=== PATIENT | female | born 1940 | race Caucasian/White ===

== ENCOUNTER 2021-09-07 16:32 | Emergency (ER) | payer MEDICARE, OTHER ==
[~2021-09-07] VITALS: Ht 162.6 cm; Wt 45.0 kg
--- NOTE | 2021-09-07 17:41 | PHYS DOC ---
Past History Past Medical History: Arthritis, COPD, Diverticulitis (PATRICE MARLEY MD) Adult General Chief Complaint Chief Complaint: ABDOMINAL PAIN HPI HPI Patient is a 81-year-old female who presents to the emergency department complaining of abdominal pain since she woke up this morning. Patient reports intermittent pains to different parts of her abdomen that come and go. Patient reports almost no pain when lying flat however notices increased pain when she sits up or when she is up walking. Patient reports she does take MiraLAX and has runny poop all the time. Patient states she is concerned that she might have another small bowel obstruction as she had similar symptoms on her small bowel obstruction earlier this month. Patient currently reports a 0 out of 10 pain at this time. Patient reports she had some "twinges of pain while in the waiting room ". Patient states last week she was seen for a COPD exacerbation as she has a history of emphysema. Patient reports she quit smoking 14 years ago. Patient states they started her on a Medrol Dosepak. Patient does report shortness of breath however patient states she is no more short of breath than she is at all times. Patient denies chest pains, productive cough, nausea or constipation. Patient denies burning with urination, increased urinary frequency, or urinary pressure. She denies recent fever or chills. Patient denies other physical complaints or physical concerns. (SUMEET FINNEY APRN) Review of Systems Review of Systems 14 body systems of review of systems have been reviewed. See HPI for pertinent positives and negative responses, otherwise all other systems are negative, nonpertinent or noncontributory. Constitutional: Negative except as outlined in HPI above. Skin: Negative except as outlined in HPI above. Eyes: Negative except as outlined in HPI above. HENT: Negative except as outlined in HPI above. Respiratory: Negative except as outlined in HPI above. Cardiovascular: Negative except as outlined in HPI above. GI: Negative except as outlined in HPI above. : Negative except as outlined in HPI above. Musculoskeletal: Negative except as outlined in HPI above. Integument: Negative except as outlined in HPI above. Neurologic: Negative except as outlined in HPI above. Endocrine: Negative except as outlined in HPI above. Lymphatic: Negative except as outlined in HPI above. Psychiatric: Negative except as outlined in HPI above. (SUMEET FINNEY APRN) Physical Exam Physical Exam Constitutional: Well developed, well nourished, no acute distress, non-toxic a ppearance. 81-year-old female in mild respiratory distress. HENT: Normocephalic, atraumatic. Eyes: Conjunctiva normal, no discharge. Neck: Normal range of motion, no stridor. Cardiovascular: No cyanosis appreciated, distal cap refill less than 2 seconds. Regular rate and rhythm. Lungs & Thorax: Patient is in no respiratory distress, no audible adventitious lung sounds appreciated. Audible inspiratory expiratory rales. Diminished lung sounds in bases with bronchial vesicular lung sounds inspiratory and expiratory all lung rich. Abdomen: No skin discoloration or swelling of the abdomen visually, normal bowel sounds all 4 quadrants for auscultation, pain to palpation generalized all 4 quadrants, no specific McBurney's point tenderness, rebound tenderness, psoas sign, or Gonzalez sign. Skin: Warm, dry, no erythema, no rash. Back: No tenderness, no deformities. Extremities: No tenderness, no cyanosis, no clubbing, ROM intact, no edema. Neurologic: Alert and oriented X 3, normal motor function, normal sensory function, no focal deficits noted. Psychologic: Affect normal, judgement normal, mood normal. (SUMEET FINNEY APRN) EKG EKG EKG performed at 1725 by ED nursing staff shows a normal sinus rhythm with left axis deviation otherwise no other ectopy appreciated, heart rate 77 bpm, UT interval 0.156, QTc interval 0.420, no acute STEMI, no ACS, no acute ischemia appreciated, EKG interpreted by ED attending physician Dr. Trevino. (SUMEET FINNEY APRN) Radiology/Procedures Radiology/Procedures [] (SUMEET FINNEY APRN) Radiology/Procedures [address] [address] IMAGING REPORT Signed PATIENT: AROLDO SERRANO ACCOUNT: [id number] : 1940 LOCATION: ER AGE: 81 SEX: F EXAM STATUS: REG ER ORD. PHYSICIAN: SUMEET FINNEY APRN REASON: Shortness of breath hypoxia, right upper quadrant abdominal pain PROCEDURE: CT ANGIO CHEST W ABD PEL W/ Study: CT angiography of the chest, abdomen and pelvis Indication: Shortness of breath. Hypoxia. Right upper quadrant abdominal pain. Dissection. Comparison: CT abdomen/pelvis 06/13/2021; CT chest 10/22/2016 Technique: Helical CT imaging performed of the chest, abdomen and pelvis after t he intravenous administration of 75 cc Omnipaque 350 contrast. Sagittal and coronal 3D MIP reconstructions were obtained. One or more of the following individualized dose reduction techniques were utilized for this examination: 1. Automated exposure control 2. Adjustment of the mA and/or kV according to patient size 3. Use of iterative reconstruction technique. Findings: Vasculature: No main, lobar or segmental pulmonary embolism. Nondilated main pulmonary artery. Trivessel calcific coronary artery disease. Extensive calcified and noncalcified atheromatous plaque throughout the aorta and aortic branch vessels. 50 percent stenosis at the left common carotid origin. Estimated 40 percent stenosis along the brachiocephalic artery. Stenosis at the right carotid bulb/bifurcation but not fully characterized. No evidence for a hemodynamically significant stenosis at the left carotid bifurcation. Incompletely characterized stenosis at the left vertebral artery origin. No dissection or aneurysm of the thoracic aorta. Mild ulcerative plaque along portions of the descending aorta such as to the right on image 111 series 4. Severe stenosis at the celiac origin estimated moderate stenosis of approximately 50 percent at the SMA origin. Severe stenosis at the right renal artery origin. No definitive flow-limiting stenosis at the left renal artery origin. Nonvisualized ZHAO origin but ZHAO branches opacify distally. Severe calcified and noncalcified atheromatous plaque of the abdominal aorta with luminal stenosis at several locations mainly up to 50 percent such as approaching the bifurcation. Bilateral calcific plaque of the common iliac arteries with long segment severe stenoses. Less pronounced stenoses of both external iliac and common femoral arteries. Maintained contrast opacification of the partially imaged superficial femoral artery on the right and left. Dense calcific plaque along the bilateral internal iliac arteries. Non-vascular Findings: Chest: Severe emphysema. No newly seen or enlarging pulmonary nodule. No pleural effusion. Scattered bronchial wall thickening. Mediastinal or hilar lymphadenopathy by size criteria. No pericardial effusion. Cachectic body habitus. No axillary adenopathy. Osteopenia. Multifocal degenerative changes. Abdomen/pelvis: No discrete hepatic parenchymal abnormality. Unremarkable gallbladder. Similar mild dilatation of the common duct from the comparison. Unchanged pancreas. The spleen is within normal limits for size. Hypertrophic configuration of the adrenal glands. The morphology is unchanged from the prior and there is no discrete mass. No newly seen abnormality of the left kidney. No left-sided hydronephrosis. Atrophic right kidney with cortical thinning and several small cystic foci. Normal bladder wall thickness. Senescent changes of the uterus with a few calcified fibroids. No definitive adnexal mass. Abnormal appearance of the sigmoid colon in the setting of diverticulosis with edematous wall thickening and poor delineation of the wall at a few locations such as at the left hemipelvis on image 93 series 8. Surrounding edema. There may be a poorly marginated gas/fluid collection at the left hemipelvis such as on image 42 series 9 and 94 series 8. Moderate constipation. Mild scattered small bowel wall thickening. No definitive pneumatosis. No transitioning to collapse to indicate obstruction. No gastric wall emphysema. The appendix is difficult to identify. Pneumoperitoneum scattered throughout the abdomen and pelvis such as seen around the liver. No portal or gastroepiploic venous gas. Osteopenia. Scattered degenerative changes. Unchanged eburnation and sclerosis at the SI joints. Impression: 1. No pulmonary embolism or aortic dissection. 2. Extremely severe calcified and noncalcified atheromatous plaque burden throughout the aorta, aortic branch vessels and coronary arteries. Luminal narrowing of the abdominal aorta up to approximately 50%. Severe stenosis at the celiac, right renal artery and ZHAO origins. Long segment severe stenoses of both common iliac arteries and multifocal less pronounced stenoses at additional locations as described in the body of the report. 3. Scattered free gas throughout the abdomen and pelvis. This appears to be originating from sigmoid colonic perforation which may be secondary to perfora ada diverticulitis with an ischemic etiology not able to be excluded. No portal or gastroepiploic venous gas to help confirm the latter. Portions of the sigmoid colon wall are difficult to delineate and there may be a poorly marginated gas/fluid collection at the left hemipelvis, such as in the region of image 94 series 8. No findings to indicate that perforation arises from the stomach or small bowel. 4. Additional chronic observations to include severe emphysema. Moderate degree of constipation. FOR INTERNAL CODING PURPOSES Critical result: Findings discussed with Dr. Marley on 09/07/2021 at 2155 hours. RESULT CODE: (C) Electronically signed by: JEREMIAS NEGRETE MD (09/07/2021 8:19 PM) [place] [address] IMAGING REPORT Signed PATIENT: AROLDO SERRANO ACCOUNT: [id number] : 1940 LOCATION: ER AGE: 81 SEX: F EXAM STATUS: REG ER ORD. PHYSICIAN: SUMEET FINNEY APRN REASON: Short of breath PROCEDURE: CHEST AP ONLY Study: XR CHEST 1V Indication: Shortness of breath. Comparison: 10/18/2016 Findings: Similar configuration of the cardiomediastinal silhouette and harini. Aortic calcific atherosclerosis. Hyperexpanded lungs with interstitial prominence also present previously. No confluent infiltrate, pleural effusion or pneumothorax. Osteopenia. Impression: 1. No acute radiographic abnormality of the chest. 2. Constellation of findings typically on account of emphysema. Correlate for a smoking history. Electronically signed by: JEREMIAS NEGRETE MD (09/07/2021 6:19 PM) [facility] DICTATED AND SIGNED BY: JEREMIAS NEGRETE MD DATE: 09/07/211816 CC: SUMEET FINNEY APRN; PCP,NO ~MTH0 0 (PATRICE MARLEY MD) Heart Score C/O Chest Pain: No Risk Factors: Risk Factors: DM, Current or recent (<one month) smoker, HTN, HLP, family history of CAD, obesity. Risk Scores: Risk Factors: DM, Current or recent (<one month) smoker, HTN, HLP, family history of CAD, obesity. (SUMEET FINNEY APRN) Course & Med Decision Making Course & Med Decision Making Pertinent Labs and Imaging studies reviewed. (See chart for details) 81-year-old female, vital signs reviewed, presents to the emergency department concerning abdominal pains. Patient's physical examination concerning for COPD exacerbation, patient is currently being treated for bronchitis however concerning low-dose 4 mg Medrol Dosepak, will order 125 mg Solu-Medrol, DuoNeb treatment, will consider starting on 50 mg p.o. prednisone pending discharge to home. Patient's abdominal pain concerning for diverticulitis versus gas pains versus other abdominal process. Will order CT abdomen pelvis. Patient is hypoxic, 93% on room air, patient reports she is normally 97 or 98% on room air at home, will order D-dimer, consider CT angio chest for rule out pulmonary emboli. Patient does report receiving the COVID-19 virus vaccination series with booster, has received her flu shot for this year. Rapid and PCR COVID-19 testing ordered. Patient is proBNP, troponin I, cardiac enzymes, and lipase negative or nonconcerning. Will order CT angio chest with IV contrast abdomen pelvis. CT pending, end of shift report given to Dr. aMrley who has assumed patient care at this time. (SUMEET FINNEY APRN) Course & Med Decision Making See Vannessa report prior shift for details prior shift changes. Last colonoscopy reportedly had a normal exam 5 years ago. History of emphysema-not smoked for 14 years. History of peripheral vascular disease. History of carotid stenosis-currently being evaluated for carotid endarterectomy History of osteoarthritis and osteopenia Impression: 1. Bowel Perforation- Suspect distal Colon-diverticular 2. Leukocytosis 14.4 3. Elevated glucose 169 4. Hypertension 5. Elevated D-dimer 4.84 6. Rapid Covid is negative-has had COVID vaccination x3 and flu vaccination 7. Severe Stenosis - Celiac, Rt renal artery, ZHAO Discussed presentation, testing and treatment with , and Dr. Foss. Admit to Chris, Consult with Pipo (PATRICE MARLEY MD) Dragon Disclaimer Dragon Disclaimer This electronic medical record was generated, in whole or in part, using a voice recognition dictation system. (SUMEET FINNEY APRN) Departure Departure: Referrals: PCP,NO (PCP) Attending Signature Attending Signature I have participated in the care of this patient and I have reviewed and agree with all pertinent clinical information above including history, exam, and recommendations. (PATRICE MARLEY MD) SUMEET FINNEY APRN Sep 07, 2021 17:41 PATRICE MARLEY MD Sep 07, 2021 19:38
[2021-09-07 17:51] LABS: BASO % 0 % (0-3); EOS % 0 % (0-3); HEMATOCRIT 39.2 % (36.0-47.0); HEMOGLOBIN 13.1 g/dL (12.0-15.5); LYMPH # 0.6 x10^3/uL (1.0-4.8); LYMPH % 4 % (24-48); MEAN CORPUSCULAR HEMOGLOBIN 33 pg (25-35); MEAN CORPUSCULAR HGB CONC 34 g/dL (31-37); MEAN CORPUSCULAR VOLUME 98 fL (79-100); MONO # 1.3 x10^3/uL (0.0-1.1); MONO % 9 % (0-9); NEUT # 12.5 x10^3uL (1.8-7.7); NEUT % 87 % (31-73); PLATELET COUNT 283 x10^3/uL (140-400); RED BLOOD COUNT 3.98 x10^6/uL (3.50-5.40); RED CELL DISTRIBUTION WIDTH 13.9 % (11.5-14.5); WHITE BLOOD COUNT 14.4 x10^3/uL (4.0-11.0)
[2021-09-07 18:02] LABS: CALCIUM 8.6 mg/dL (8.5-10.1); GFR 53.5; POTASSIUM 4.7 mmol/L (3.5-5.1)
[2021-09-07 18:18] LABS: ALBUMIN 3.3 g/dL (3.4-5.0); TOTAL BILIRUBIN 0.2 mg/dL (0.2-1.0); TOTAL PROTEIN 6.6 g/dL (6.4-8.2)
--- NOTE | 2021-09-07 18:21 | RAD ---
Study: XR CHEST 1V Indication: Shortness of breath. Comparison: 10/18/2016 Findings: Similar configuration of the cardiomediastinal silhouette and harini. Aortic calcific atherosclerosis. Hyperexpanded lungs with interstitial prominence also present previously. No confluent infiltrate, pl eural effusion or pneumothorax. Osteopenia. Impression: 1. No acute radiographic abnormality of the chest. 2. Constellation of findings typically on account of emphysema. Correlate for a smoking history. Electronically signed by: JEREMIAS NEGRETE MD (09/07/2021 6:19 PM) [facility]
[2021-09-07] MEDS ORDERED: IOHEXOL 350 MG/ML 100 ML VIAL. IV ONE (18:45)
[2021-09-07] MEDS ORDERED: IPRATRPIUM/ALBUTEROL 0.5/2.5MG 3 ML NEBU. NEB ONE (18:45)
[2021-09-07] MEDS ORDERED: methylPREDNISolone SOD SUCC PF 125 MG/2 ML VIAL. IV ONE (18:45)
[2021-09-07] MEDS ORDERED: cefTRIAXone SODIUM 1 GM VIAL ONE (20:19)
[2021-09-07] MEDS ORDERED: IV NORMAL SALINE 50ML 50 ML ONE (20:19)
--- NOTE | 2021-09-07 20:22 | RAD ---
Study: CT angiography of the chest, abdomen and pelvis Indication: Shortness of breath. Hypoxia. Right upper quadrant abdominal pain. Dissection. Comparison: CT abdomen/pelvis 06/13/2021; CT chest 10/22/2016 Technique: Helical CT imaging performed of the chest, abdomen and pelvis after the intravenous admini stration of 75 cc Omnipaque 350 contrast. Sagittal and coronal 3D MIP reconstructions were obtained. One or more of the following individualized dose reduction techniques were utilized for this examinat ion: 1. Automated exposure control 2. Adjustment of the mA and/or kV according to patient size 3. Use of iterative reconstruction technique. Findings: Vasculature: No main, lobar or segmental pulmonary embolism. Nondilated main pulmonary artery. Trivessel calcific coronary artery disease. Extensive calcified and noncalcified atheromatous plaque throughout the aorta and aortic branch vessels. 50 percent stenosis at the left common carotid origin . Estimated 40 percent stenosis along the brachiocephalic artery. Stenosis at the right carotid bulb/ bifurcation but not fully characterized. No evidence for a hemodynamically significant stenosis at th e left carotid bifurcation. Incompletely characterized stenosis at the left vertebral artery origin. No dissection or aneurysm of the thoracic aorta. Mild ulcerative plaque along portions of the descend ing aorta such as to the right on image 111 series 4. Severe stenosis at the celiac origin estimated moderate stenosis of approximately 50 percent at the S MA origin. Severe stenosis at the right renal artery origin. No definitive flow-limiting stenosis at the left renal artery origin. Nonvisualized ZHAO origin but ZHAO branches opacify distally. Severe calc ified and noncalcified atheromatous plaque of the abdominal aorta with luminal stenosis at several lo cations mainly up to 50 percent such as approaching the bifurcation. Bilateral calcific plaque of the common iliac arteries with long segment severe stenoses. Less pronou nced stenoses of both external iliac and common femoral arteries. Maintained contrast opacification o f the partially imaged superficial femoral artery on the right and left. Dense calcific plaque along the bilateral internal iliac arteries. Non-vascular Findings: Chest: Severe emphysema. No newly seen or enlarging pulmonary nodule. No pleural effusion. Scattered bronchi al wall thickening. Mediastinal or hilar lymphadenopathy by size criteria. No pericardial effusion. C achectic body habitus. No axillary adenopathy. Osteopenia. Multifocal degenerative changes. Abdomen/pelvis: No discrete hepatic parenchymal abnormality. Unremarkable gallbladder. Similar mild dilatation of the common duct from the comparison. Unchanged pancreas. The spleen is within normal limits for size. Hy pertrophic configuration of the adrenal glands. The morphology is unchanged from the prior and there is no discrete mass. No newly seen abnormality of the left kidney. No left-sided hydronephrosis. Atrophic right kidney wit h cortical thinning and several small cystic foci. Normal bladder wall thickness. Senescent changes o f the uterus with a few calcified fibroids. No definitive adnexal mass. Abnormal appearance of the sigmoid colon in the setting of diverticulosis with edematous wall thicken ing and poor delineation of the wall at a few locations such as at the left hemipelvis on image 93 se charlene 8. Surrounding edema. There may be a poorly marginated gas/fluid collection at the left hemipelv is such as on image 42 series 9 and 94 series 8. Moderate constipation. Mild scattered small bowel wa ll thickening. No definitive pneumatosis. No transitioning to collapse to indicate obstruction. No ga stric wall emphysema. The appendix is difficult to identify. Pneumoperitoneum scattered throughout the abdomen and pelvis such as seen around the liver. No portal or gastroepiploic venous gas. Osteopenia. Scattered degenerative changes. Unchanged eburnation and sclerosis at the SI joints. Impression: 1. No pulmonary embolism or aortic dissection. 2. Extremely severe calcified and noncalcified atheromatous plaque burden throughout the aorta, aort ic branch vessels and coronary arteries. Luminal narrowing of the abdominal aorta up to approximately 50%. Severe stenosis at the celiac, right renal artery and ZHAO origins. Long segment severe stenoses of both common iliac arteries and multifocal less pronounced stenoses at additional locations as catherine cribed in the body of the report. 3. Scattered free gas throughout the abdomen and pelvis. This appears to be originating from sigmoid colonic perforation which may be secondary to perforated diverticulitis with an ischemic etiology no t able to be excluded. No portal or gastroepiploic venous gas to help confirm the latter. Portions of the sigmoid colon wall are difficult to delineate and there may be a poorly marginated gas/fluid col lection at the left hemipelvis, such as in the region of image 94 series 8. No findings to indicate t hat perforation arises from the stomach or small bowel. 4. Additional chronic observations to include severe emphysema. Moderate degree of constipation. FOR INTERNAL CODING PURPOSES Critical result: Findings discussed with Dr. Marley on 09/07/2021 at 2155 hours. RESULT CODE: (C) Electronically signed by: JEREMIAS NEGRETE MD (09/07/2021 8:19 PM) [facility]
[2021-09-07 20:42] VITALS: BP 150/57
[2021-09-07 22:05] LABS: BACTERIA,URINE 0 /HPF (0-FEW); BILIRUBIN,URINE NEG (NEG); CLARITY,URINE CLEAR; COLOR,URINE YELLOW; GLUCOSE,URINE NEG (NEG); NITRITE,URINE NEG (NEG); RBC,URINE 0 /HPF (0-2); UROBILINOGEN,URINE 0.2 mg/dL (0.2 mg/dL); WBC,URINE OCC /HPF (0-4)
--- NOTE | 2021-09-08 00:21 | EKG ---
[address] [address] Test Date: 2021-09-07 Test Time: 17:25:36 Pat Name: AROLDO SERRANO Department: Room: Gender: F Telephone Coin Box Collector: LEEANNE : 1940 Requested By: SUMEET FINNEY Order Number: [id number] Reading MD: Hieu Zhang Measurements Intervals [place] Rate: 77 P: 90 SD: 156 QRS: 30 QRSD: 66 T: 79 QT: 370 QTc: 420 Interpretive Statements SINUS RHYTHM LEFT ATRIAL ABNORMALITY QRS(T) CONTOUR ABNORMALITY CONSISTENT WITH ANTEROSEPTAL INFARCT AGE UNDETERMINED T ABNORMALITY IN HIGH LATERAL LEADS ABNORMAL ECG RI6.02 No previous ECG available for comparison Electronically Signed On 09-10-2021 12:57:37 CIVIL SERVICE CLERK by Hieu Zhang
--- NOTE | 2021-09-09 11:26 | NUR ---
ATTEMPTED TO REAHC PATIENT WITH COVID RESULTS. NO ANSWER. MESSAGE LEFT.
== END 2021-09-07 23:12 | disposition short-term general hospital (02) ==
LOC: ER 16:32
DX: K63.1 Perforation of intestine (nontraumatic) (principal); D72.829 Elevated white blood cell count, unspecified; R73.9 Hyperglycemia, unspecified; I10 Essential (primary) hypertension; R79.1 Abnormal coagulation profile; I70.1 Atherosclerosis of renal artery; M19.90 Unspecified osteoarthritis, unspecified site; J44.9 Chronic obstructive pulmonary disease, unspecified; Z20.822 Contact with and (suspected) exposure to COVID-19
CPT/HCPCS: 36415; 71045; 71275; 74177; 80053; 81001; 82553; 83690; 83880; 84484; 85025; 85379; 87426; 93005; 94640; 96374; 96375; 99285; C9803; J0696; J1956; J2930; Q9967; U0003

== ENCOUNTER 2021-10-14 22:23 | Inpatient (IN) | payer MEDICARE ==
[~2021-10-14] VITALS: Ht 162.6 cm; Wt 45.0 kg
--- NOTE | 2021-10-14 22:33 | PHYS DOC ---
Past History Past Medical History: Arthritis, COPD, Dementia, Diverticulitis Past Surgical History: No Surgical History Alcohol Use: None General Adult HPI: HPI: ".. She was okay... up until about a hour ago... then she would nt respond.. " " Had a mild head ache earlier.. but she started starring to the right.. and would not respond.." Daughter Patient is a 81 year old female who presents with history of altered mental status as of 2030 hrs. Patient found by family with decreased response stimuli. Had a fixed gaze to the right. Patient does appear to have a fixed gaze to the right and left-sided weakness. On arrival to the emergency department. Patient was activated as a code stroke and went directly to CT imaging. Patient reportedly not on any anticoagulants. Does take a daily aspirin. No history of recent falls or head injury. 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 Pt. had episodes of constipation. Patient reportedly no longer smokes. No history of recent fever or chills. No recent travel. Patient has completed COVID vaccination x3 and had flu vaccination. Review of Systems: Review of Systems: Pt. non- responsive- ROS system per PHI- via daughter Family History: Family History: Noncontributory to presentation Current Medications: Current Meds: See nursing for home meds Allergies: Allergies: Allergies Coded Allergies Type Severity Reaction Last Updated Verified No Known Drug Allergies 09/07/21 No Physical Exam: PE: Constitutional: in acute distress, morbid in appearance. [] HENT: Normocephalic, atraumatic, bilateral external ears normal, oropharynx moist, no oral exudates, nose normal. Slight gag. Eyes: Pupils dilated, conjunctiva pale, no discharge. [] Has fixed gaze to the right. Neck: No bruits appreciated, no stridor. [] Cardiovascular: Bradycardic heart rate regular rhythm, no murmur, PMI to the left Lungs & Thorax: Bilateral breath sounds equal at apex with scattered wheezes auscultation [] Abdomen: Bowel sounds decreased then distended,, soft, no tenderness, no masses, no pulsatile masses. [] Skin: Warm, dry, no erythema, no rash. Poor turgor Back: No tenderness, no CVA tenderness. [] Extremities: no edema. Arthritic changes. Some movement with noxious stimuli on the right. Left side does not respond to noxious stimuli Neurologic: Nonresponsive, appears to have left-sided weakness, some distal sensory on right with noxious stimuli, no focal deficits noted. [] Current Patient Data: Labs: Laboratory Tests Test 10/14/21 22:25 Glucose (Fingerstick) 173 mg/dL (70-99) H EKG: EKG: My interpretation EKG shows a sinus rhythm at 62 bpm right axis deviation with anterior septal changes abnormal EKG. Time of EKG is 2243 hrs. [] Radiology/Procedures: Radiology/Procedures: [][place] [address] IMAGING REPORT Signed PATIENT: AROLDO SERRANO ACCOUNT: [id number] : 1940 LOCATION: ER AGE: 81 SEX: F EXAM STATUS: PRE ER ORD. PHYSICIAN: PATRICE WELCH MD REASON: Code stroke, altered mental status, lethargic PROCEDURE: CT CODE STROKE HEAD WO CT brain without contrast HISTORY: Code stroke, altered mental status. CT scan the brain was done without contrast. There is a large hemorrhage involving the temporal, occipital lobes and parietal lobes on the right. There is extensive edema. There may also be a small low-density right subdural h ematoma in the frontal region on the right. There is shift of the midline by a centimeter to the left. IMPRESSION: 1. Large right temporal, occipital and parietal hemorrhage. 2. Significant edema. 3. Mass effect and shift of the midline to the left. 4. Low-density extra-axial fluid in the frontal lobe on the right suggesting is a small subdural as well. FOR INTERNAL CODING PURPOSES Critical result: Findings discussed with PATRICE WELCH MD at 10/14/2021 10:54 PM. RESULT CODE: (C) PQRS Compliance Statement: One or more of the following individualized dose reduction techniques were utilized for this examination: 1. Automated exposure control 2. Adjustment of the mA and/or kV according to patient size 3. Use of iterative reconstruction technique Electronically signed by: Edy Huang MD (10/14/2021 10:57 PM) [facility] DICTATED AND SIGNED BY: EDY HUANG MD DATE: 10/14/21 066 CC: PATRICE WELCH MD; PCP,NO ~MTH0 [address] [place] [address] IMAGING REPORT Signed PATIENT: AROLDO SERRANO ACCOUNT: [id number] : 1940 LOCATION: ER AGE: 81 SEX: F EXAM STATUS: REG ER ORD. PHYSICIAN: PATRICE WELCH MD REASON: Dyspnea, lethargic, code stroke PROCEDURE: PORTABLE CHEST 1V AP chest. HISTORY: Dyspnea, lethargic, code stroke AP view of the chest was compared with a study from September 07. There are changes from of chronic obstructive pulmonary disease. Heart is normal in size. There are no acute infiltrates. There is mild apical scarring. IMPRESSION: 1. No acute infiltrates. Electronically signed by: Edy Huang MD (10/14/2021 11:29 PM) [facility] DICTATED AND SIGNED BY: EDY HUANG MD DATE: 10/14/212327 CC: PATRICE WELCH MD; NON,STAFF ~MTH0 0 Heart Score: C/O Chest Pain: N/A HEART Score for Chest Pain: HEART Score for Chest Pain Response (Comments) Value History Highly Suspicious [address] Depression 2 Age > 65 2 Risk Factors 1 or 2 Risk Factors 1 Troponin < Normal Limit 0 Total 7 Risk Factors: Risk Factors: DM, Current or recent (<one month) smoker, HTN, HLP, family history of CAD, obesity. Risk Scores: Score 0 - 3: 2.5% MACE over next 6 weeks - Discharge Home Score 4 - 6: 20.3% MACE over next 6 weeks - Admit for Clinical Observation Score 7 - 10: 72.7% MACE over next 6 weeks - Early Invasive Strategies Course & Med Decision Making: Course & Med Decision Making Pertinent Labs and Imaging studies reviewed. (See chart for details) Discussed presentation, testing and tx plan with Dr. Cecil Langston. Advised not a survivable event. Would benefit from comfort care. Ultimate decision will be family's preference. Did talk to daughter who advised that she felt that comfort care was most reasonable thing to do now. Did review CT on monitor with daughter. Review CT findings with daughter, family members. Requested only comfort care for her mother. Daughter request mother bed made a DNR- Focus Comfort care. No shocks, No labs, No Intubation. No CPR. No IV sticks except.for administration of comfort care meds- Morphine / Ativan. May have morphine if pt. exhibit air hunger or any discomfort. Critical Care - 30 min. Pt. presentation, testing and gtx. plan discussed with Dr Perez. Admit to his service. Impression: 1. Massive Cerebral Bleed - Large Rt. Temporal, Occiptal and Parietal Hemorrhage, with Mass and shift . 2. Small Subdural 3. Leukocytosis 14.2 4. Anemia Hgb 11.1 5. DM - Glucose 159 6. Elevated D-dimer2.34 7. Elevated CRP 5.1 8. DNR-focus comfort care (No intubation, No CPR, No shocks, No IV sticks- except to give comfort meds.) ! COMFORT CARE! 9. Accelerated HTN Endorsed to Dr. Trevino at shift change - pending transfer to [facility]. [] Dragon Disclaimer: Dragon Disclaimer: This electronic medical record was generated, in whole or in part, using a voice recognition dictation system. Departure Departure: Referrals: PCP,NO (PCP) Kirk Disclaimer This chart was dictated in whole or in part using Voice Recognition software in a busy, high-work load, and often noisy Emergency Department environment. It may contain unintended and wholly unrecognized errors or omissions. PATRICE WELCH MD Oct 14, 2021 22:33
[2021-10-14] MEDS ORDERED: IV RINGERS SOLUTION,LACTATED 1,000 ML IV SCH (22:45)
[2021-10-14 22:51] LABS: BASO % 0 % (0-3); EOS % 0 % (0-3); HEMATOCRIT 33.4 % (36.0-47.0); HEMOGLOBIN 11.1 g/dL (12.0-15.5); LYMPH # 1.3 x10^3/uL (1.0-4.8); LYMPH % 9 % (24-48); MEAN CORPUSCULAR HEMOGLOBIN 32 pg (25-35); MEAN CORPUSCULAR HGB CONC 33 g/dL (31-37); MEAN CORPUSCULAR VOLUME 96 fL (79-100); MONO # 0.9 x10^3/uL (0.0-1.1); MONO % 6 % (0-9); NEUT % 84 % (31-73); PLATELET COUNT 252 x10^3/uL (140-400); RED BLOOD COUNT 3.48 x10^6/uL (3.50-5.40); RED CELL DISTRIBUTION WIDTH 13.9 % (11.5-14.5); WHITE BLOOD COUNT 14.2 x10^3/uL (4.0-11.0)
[2021-10-14 22:59] LABS: CALCIUM 8.8 mg/dL (8.5-10.1); CREATININE 0.9 mg/dL (0.6-1.0); GFR 60.4; POTASSIUM 3.6 mmol/L (3.5-5.1)
--- NOTE | 2021-10-14 23:00 | RAD ---
CT brain without contrast HISTORY: Code stroke, altered mental status. CT scan the brain was done without contrast. There is a large hemorrhage involving the temporal, occi pital lobes and parietal lobes on the right. There is extensive edema. There may also be a small low- density right subdural hematoma in the frontal region on the right. There is shift of the midline by a centimeter to the left. IMPRESSION: 1. Large right temporal, occipital and parietal hemorrhage. 2. Significant edema. 3. Mass effect and shift of the midline to the left. 4. Low-density extra-axial fluid in the frontal lobe on the right suggesting is a small subdural as w ell. FOR INTERNAL CODING PURPOSES Critical result: Findings discussed with PATRICE WELCH MD at 10/14/2021 10:54 PM. RESULT CODE: (C) PQRS Compliance Statement: One or more of the following individualized dose reduction techniques were utilized for this examinat ion: 1. Automated exposure control 2. Adjustment of the mA and/or kV according to patient size 3. Use of iterative reconstruction technique Electronically signed by: Edy Huang MD (10/14/2021 10:57 PM) [facility]
[2021-10-14 23:10] LABS: ALBUMIN 3.1 g/dL (3.4-5.0); C REACTIVE PROTEIN 5.1 mg/L (0-3.3); DIRECT BILIRUBIN 0.1 mg/dL (0.0-0.2); MAGNESIUM 1.9 mg/dL (1.8-2.4); TOTAL BILIRUBIN 0.3 mg/dL (0.2-1.0); TOTAL PROTEIN 6.1 g/dL (6.4-8.2)
--- NOTE | 2021-10-14 23:31 | RAD ---
AP chest. HISTORY: Dyspnea, lethargic, code stroke AP view of the chest was compared with a study from September 07. There are changes from of chronic obs tructive pulmonary disease. Heart is normal in size. There are no acute infiltrates. There is mild ap ical scarring. IMPRESSION: 1. No acute infiltrates. Electronically signed by: Edy Huang MD (10/14/2021 11:29 PM) [facility]
[2021-10-14 23:45] LABS: AMPHETAMINE/METHAMPHETAMINE NEG (NEG); BARBITURATES NEG (NEG); BENZODIAZEPINES NEG (NEG); CANNABINOIDS NEG (NEG); COCAINE NEG (NEG); METHADONE NEG (NEG); OPIATES NEG (NEG); PHENCYCLIDINE NEG (NEG)
[2021-10-15] MEDS ORDERED: ONDANSETRON PF 4 MG/2 ML VIAL. IVP PRN
[2021-10-15 00:09] LABS: BACTERIA,URINE 0 /HPF (0-FEW); BILIRUBIN,URINE NEG (NEG); CLARITY,URINE CLEAR; COLOR,URINE YELLOW; GLUCOSE,URINE NEG (NEG); NITRITE,URINE NEG (NEG); RBC,URINE OCC /HPF (0-2); UROBILINOGEN,URINE 0.2 mg/dL (0.2 mg/dL); WBC,URINE 0 /HPF (0-4)
[2021-10-15] MEDS ORDERED: IV RINGERS SOLUTION,LACTATED 1,000 ML IV ONE (00:15)
[2021-10-15] MEDS: MORPHINE SULFATE 2 MG/ML DISP.SYRIN. IVP PRN ×3 (00:23→06:00)
[2021-10-15 11:23] LABS: INFLUENZA A PATIENT NEGATIVE (NEGATIVE); INFLUENZA B PATIENT NEGATIVE (NEGATIVE)
[2021-10-15] MEDS ORDERED: MOR20SLSJL SL (15:08)
[2021-10-15] MEDS ORDERED: LORA2ORA8 PO (15:08)
[2021-10-15] MEDS ORDERED: MORPHINE SULFATE 2 MG/ML DISP.SYRIN. IV PRN (18:00)
--- NOTE | 2021-10-15 19:15 | NUR ---
ADMISSION: The patient, AROLDO SERRANO, 81 y/o, F admitted by NICO SAUCEDA MD, was given written information regarding hospital policies, unit procedures and contact persons. Pt arrived to room 119 via gurney, accompanied by [facility] and ED staff. Pt here for comfort care sec to massive cerebral bleed. Pt unresponsive, pupils dilated with fixed gaze to the right. Pt is a DNR and is comfort care only. Will transition to inpatient hospice tomorrow. PRN ativan and morphine administered per order. Bed in lowest position. Valuables were checked and logged.
[2021-10-15 19:40] VITALS: BP 188/63
[2021-10-15 23:27] VITALS: BP 194/63
--- NOTE | 2021-10-16 00:20 | NUR ---
DC Note: Pt discharged from M/S status and is to be readmitted as hospice status. Remains in room 119.
[2021-10-16] MEDS ORDERED: ATROPINE 1% OPHTH SOLUTION 5ML BOTTLE. SL PRN (01:45)
[2021-10-16] MEDS ORDERED: MORPHINE SULFATE 2 MG/ML DISP.SYRIN. IV PRN (01:45)
[2021-10-16] MEDS ORDERED: ACETAMINOPHEN 650 MG SUPP.RECT. PR PRN (01:45)
[2021-10-16] MEDS ORDERED: 0.9 % SODIUM CHLORIDE 10 ML DISP.SYRIN. IV PRN (01:45)
[2021-10-16] MEDS ORDERED: SCOPOLAMINE 1.5MG PATCH. TD PRN (01:45)
--- NOTE | 2021-10-16 04:27 | EKG ---
[address] [address] Test Date: 2021-10-14 Test Time: 22:43:26 Pat Name: AROLDO SERRANO Department: Room: 119 A Gender: F Reimbursement Representative: : 1940 Requested By: PATRICE WELCH Order Number: [id number] Reading MD: Walter Sevilla Measurements Intervals [place] Rate: 62 P: 108 IA: 162 QRS: 180 QRSD: 76 T: 129 QT: 468 QTc: 478 Interpretive Statements SINUS RHYTHM ABNORMAL RIGHT AXIS DEVIATION NON SPECIFIC ST-T WAVE CHANGES Electronically Signed On 10-17-2021 16:25:16 CASTING AND PASTING SUPERVISOR by Walter Sevilla
--- NOTE | 2021-10-16 04:29 | EKG ---
[address] [address] Test Date: 2021-10-15 Test Time: 05:09:04 Pat Name: AROLDO SERRANO Department: Room: 119 A Gender: F Instrumentation And Controls Technician: GABINO : 1940 Requested By: PATRICE WELCH Order Number: [id number] Reading MD: Walter Sevilla Measurements Intervals [place] Rate: 69 P: 65 W[place]: 172 QRS: -15 QRSD: 68 T: 44 QT: 418 QTc: 449 Interpretive Statements SINUS RHYTHM LEFTWARD AXIS QRS(T) CONTOUR ABNORMALITY CONSISTENT WITH A POSSIBLE OLD ANTEROSEPTAL INFARCT Electronically Signed On 10-17-2021 16:23:36 INSTRUMENT SHOP SUPERVISOR by Walter Sevilla
--- NOTE | 2021-10-16 14:34 | NUR ---
Pt and home arrived to take possession of the at 0645.
--- NOTE | 2021-10-23 11:01 | HP ---
DATE OF SERVICE: 10/23/2021 ADMIT DATE: 10/14/2021 HISTORY OF PRESENT ILLNESS: The patient is a 81-year-old female patient who presented to the Emergency Room of [facility] with altered mental status. The patient found by family with decreased response. She does appear to have a fixed gaze to the right and left-sided weakness. On arrival to the Emergency Room Department, the patient was activated as a code stroke and went directly to CT imaging. The patient reportedly is not on any anticoagulant, does take a daily aspirin. No history of recent falls or head injury. The patient does have a history of hypertension, anxiety, hypoxia, sleep apnea requiring oxygen. On arrival, she was unresponsive, appears to have left-sided weakness, some distal sensory on the right with noxious stimuli. No focal deficit noted. Her CT scan of the head showed that the patient has large right temporal, occipital and parietal hemorrhage, significant edema, mass effect and shift of the midline to the left and low density extraaxial fluid in the frontal lobe on the right, suggesting a small subdural hematoma as well. The discussion was held with Dr. Rose who advises no other surgical event would benefit from comfort care and family was contacted and the daughter requested her mother to be DNR and to focus on comfort care, no shocks, labs, intubation or CPR. No IV sticks except for administration for comfort care medication; morphine, Ativan. Initially, the plan was for the patient to go back home on hospice and the decision was made to transfer her to [facility] on hospice; however, she turned out to be positive for COVID and therefore, the daughter was unable to take care of her at home and apparently [facility] refused to take her and therefore, the patient was admitted to [facility] for comfort care and to consult the hospice for inpatient hospice care. PAST MEDICAL HISTORY: Significant for hypertension, hyperlipidemia, chronic obstructive pulmonary disease that is oxygen dependent. 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 PAST SURGICAL HISTORY: Significant for bilateral cataract extraction, surgery for retinal detachment. ALLERGIES: She has no known drug allergies. MEDICATIONS: The patient was on simvastatin 40 mg at bedtime, metoprolol succinate 50 mg once a day, lisinopril 10 mg once a day, aspirin 81 mg once a day, lorazepam 1 mg at bedtime, calcium carbonate 600 mg daily, methylprednisone 4 mg daily. She is on multivitamin 1 tablet once a day. FAMILY HISTORY: Noncontributory. SOCIAL HISTORY: She is , lives with her daughter. She quit smoking about 14 years ago. She does not drink alcohol or recreational drugs. She works at [employer] in [employer] for 10 years and worked as a head banquet waitress for 10 years. She is currently retired. REVIEW OF SYSTEMS: As per history of present illness. PHYSICAL EXAMINATION: GENERAL: On arrival to the Emergency Room, she was somewhat pale, not jaundiced, cyanosed, no lymphadenopathy, no thyromegaly, no jugular venous distention, no lower limb edema. VITAL SIGNS: Her heart rate was 71, blood pressure was 176/59, temperature was 97, respiratory rate was 49 and oxygen saturation was 97% on room air. HEAD, EYES, EARS, NOSE, AND THROAT: Normocephalic, atraumatic. NECK: Supple. HEART: Normal first and second heart sounds. No gallop, rub or murmur. CHEST: Showed central trachea, equal bilateral chest expansion, air entry, vesicular breath sounds. No crepitation or rhonchi. ABDOMEN: Scaphoid, soft, nontender. NEUROLOGIC: The patient was nonresponsive, appears to have sided weakness and fixed gaze to the right. LABORATORY DATA: On arrival showed that her white cell count was 14,200, hemoglobin 11, hematocrit 33, MCV 96 and platelet count 252,000 with a normal manual differential. Her serum sodium was 135, potassium 3.6, chloride 96, bicarbonate 27, anion gap of 12, BUN 25, creatinine 0.9. Estimated GFR was 60 mL per minute. Her glucose 159, calcium was 8.8, magnesium was 1.9. Total bilirubin, AST, ALT, alkaline phosphatase were normal. CK was 46, total C-reactive protein was 5.1, total protein was 6.1, albumin was 3.1. Her prothrombin time, INR and APTT were normal. D-dimer was 2.3. Urinalysis essentially unremarkable and toxic screen was negative. Her influenza A and B were negative. PLIA-EMLIU-1 antigen rapid testing was positive. Her chest x-ray showed no acute infiltrate and the CT scan of the head showed large right temporal, occipital and parietal hemorrhage, significant edema, mass effect and shift of the midline to the left, low density extraaxial fluid in the frontal lobe on the right, suggesting small subdural hematoma as well. As I stated earlier, the patient was admitted to [facility] as the daughter was unable to take care of at her home. She changed her code status DNR/DNI, no labs, no imaging studies and no medication or CPR but needed for comfort care as the patient was admitted with a massive cerebral bleed. She has a large right temporal, occipital and parietal hemorrhage with mass effect and shift of midline. She has also right-sided small subdural hematoma, anemia. She is now DNR with comfort care only, no intubation, no CPR, no shocks, no IV sticks, except for discomfort medication. The patient was admitted to [address] [place] [address], started on IV morphine and Ativan. We have consulted hospice for inpatient hospice care. MORENO DR: Peter TID: [id number]
--- NOTE | 2021-10-23 17:26 | DS ---
DATE OF DISCHARGE: 10/16/2021 DISCHARGE AND SUMMARY HOSPITAL COURSE: The patient is a 81-year-old female patient who was admitted to the Emergency Room of [facility] with a massive intracerebral hemorrhage involving her right temporal, occipital and parietal lobes and with a midline shift and a small right frontal subdural hematoma. She was unconscious. In consultation with the neurosurgeon, it transpired that she is not a surgical candidate and the family decided to change her code status to DNR/DNI and was admitted for comfort and end of life care. We started her on IV morphine and Ativan. We did consult the Hospice Care, but they never saw her. As the patient's condition has rapidly deteriorated, she was evaluated by the nursing staff. She was found to have no palpable pulses, no audible heart sounds and no spontaneous breathing and was pronounced CAUSE OF : 1. Cardiopulmonary arrest. 2. Acute hypoxic respiratory failure. 3. Massive intracerebral hemorrhage with midline shift. EVY DR: Peter TID: [id number]
== END 2021-10-16 14:36 | DRG 64 ==
LOC: ER 22:23 → ER HOLD 23:59 → 1 SOUTH 10-15 17:36 → UNDODISIN 10-16 00:20
PROVIDERS: ADMIT Internal Medicine; ATTEND Internal Medicine
DX: I61.1 Nontraumatic intracerebral hemorrhage in hemisphere, cortical (principal); U07.1 COVID-19; J96.01 Acute respiratory failure with hypoxia; K55.1 Chronic vascular disorders of intestine; I62.00 Nontraumatic subdural hemorrhage, unspecified; D64.9 Anemia, unspecified; D72.829 Elevated white blood cell count, unspecified; E11.9 Type 2 diabetes mellitus without complications; I46.9 Cardiac arrest, cause unspecified; E78.00 Pure hypercholesterolemia, unspecified; F03.90 Unspecified dementia, unspecified severity, without behavioral disturbance, psychotic disturbance, mood disturbance, and anxiety; I10 Essential (primary) hypertension; J44.9 Chronic obstructive pulmonary disease, unspecified; M81.0 Age-related osteoporosis without current pathological fracture; Z51.5 Encounter for palliative care; Z66 Do not resuscitate; Z79.82 Long term (current) use of aspirin; Z87.891 Personal history of nicotine dependence; F41.9 Anxiety disorder, unspecified; M19.90 Unspecified osteoarthritis, unspecified site; E78.5 Hyperlipidemia, unspecified; I70.1 Atherosclerosis of renal artery; Z98.41 Cataract extraction status, right eye; Z98.42 Cataract extraction status, left eye; Z99.81 Dependence on supplemental oxygen; I70.8 Atherosclerosis of other arteries; G47.30 Sleep apnea, unspecified
CPT/HCPCS: 36415; 51702; 70450; 71045; 80048; 80076; 80307; 81001; 82550; 82947; 83690; 83735; 83880; 84443; 84484; 85025; 85379; 85610; 85730; 86140; 87428; 93005; 96361; 96374; 96375; J2060; J2270; J7120; 99291-25